=== PATIENT | female | born 1950 | race Caucasian/White ===

== ENCOUNTER 2016-04-25 10:33 | Inpatient (IN) | payer OTHER ==
[~2016-04-25] VITALS: Ht 160 cm; Wt 76.0 kg
[2016-04-25] MEDS ORDERED: ED DILTIAZEM DRIP 125 ML IV ONE (10:59)
[2016-04-25] MEDS ORDERED: ASPIRIN 81 MG CHEW TAB ONE (10:59)
[2016-04-25] MEDS ORDERED: DILTIAZEM 50 MG/10 ML VIAL IV ONE (10:59)
[2016-04-25] MEDS ORDERED: AZITHROMYCIN 500 MG VIAL IV ONE (14:33)
[2016-04-25] MEDS ORDERED: CEFTRIAXONE 1 GM VIAL ONE (14:33)
[2016-04-25] MEDS ORDERED: SODIUM CHLORIDE 0.9% 100 ML IV ONE (14:34)
[2016-04-25] MEDS ORDERED: SODIUM CHLORIDE 0.9% 250 ML IV ONE (14:34)
[2016-04-25 16:22] VITALS: BP_SYST 120; BP_SYST 122; RESP 18; TEMP 97.6; BMI 29.7
[2016-04-25] MEDS ORDERED: PNEUMO VAC 25 MCG/0.5 ML VL IM.VACC ONE (17:35)
[2016-04-25 19:00] VITALS: BP_SYST 122; RESP 18; TEMP 97.9
[2016-04-25] MEDS ORDERED: ONDANSETRON 4 MG VIAL IV PUSH PRN (19:15)
[2016-04-25] MEDS ORDERED: SALINE FLUSH 10 ML FLUSH PRN (19:15)
[2016-04-25 19:23] VITALS: BP_SYST 122
[2016-04-25 19:24] VITALS: TEMP 97.9
[2016-04-25 20:15] VITALS: RESP 20
[2016-04-25] MEDS: SALINE FLUSH 10 ML FLUSH SCH (20:18)
[2016-04-25] MEDS ORDERED: Atorvastatin 10 MG TAB PO SCH (21:00)
[2016-04-25 23:00] VITALS: BP_SYST 111; RESP 18; TEMP 98.8
[2016-04-26 03:00] VITALS: BP_SYST 117; RESP 18; TEMP 99
[2016-04-26] MEDS ORDERED: SODIUM CHLORIDE 0.9% FLUSH BAG 500 ML IV SCH (06:00)
[2016-04-26 07:02] VITALS: BP_SYST 117
[2016-04-26 07:42] VITALS: BP_SYST 118; RESP 16; TEMP 98.9
[2016-04-26] MEDS ORDERED: ASPIRIN EC 81 MG TAB PO SCH (09:00)
[2016-04-26] MEDS ORDERED: CALCIUM PO SCH (09:00)
[2016-04-26] MEDS ORDERED: MULTIVITS/MIN (OCUVITE) TAB PO SCH (09:00)
[2016-04-26] MEDS ORDERED: CEFTRIAXONE 1 GM in SODIUM CHLORIDE 0.9% 50 ML IV SCH (09:00)
[2016-04-26] MEDS ORDERED: KCL CR 20 MEQ TAB PO SCH (09:00)
[2016-04-26] MEDS ORDERED: BUPROPION XL 150 MG TAB PO SCH (09:00)
[2016-04-26] MEDS ORDERED: FOLIC ACID 1 MG TAB PO SCH (09:00)
[2016-04-26] MEDS ORDERED: VIT D PO SCH (09:00)
[2016-04-26] MEDS ORDERED: LISINOPRIL/HCTZ 10/12.5 TAB PO SCH (09:00)
[2016-04-26] MEDS ORDERED: AZITHROMYCIN 500 MG in SODIUM CHLORIDE 0.9% 250 ML IV SCH (09:00)
[2016-04-26] MEDS: SALINE FLUSH 10 ML FLUSH SCH (09:56)
[2016-04-26 11:54] VITALS: BP_SYST 141; RESP 18; TEMP 98.4
[2016-04-26 14:18] VITALS: BP_SYST 141; RESP 18; TEMP 98.4
[2016-04-27] MEDS ORDERED: HYDROXYCHLOROQUINE 200 MG PO SCH (09:00)
== END 2016-04-26 17:41 | disposition home or self-care (01) | DRG 193 ==
LOC: ENRESERVTM → ENRESERVDT → ER 10:33 → EMR 14:20 → ENPENDDIS 14:20 → 4THE 16:13
PROVIDERS: ADMIT Family Medicine; ATTEND Family Medicine
PROC: 0W9B3ZZ Drainage of Left Pleural Cavity, Percutaneous Approach (ICD-10-PCS; principal; 2016-04-25)
CPT/HCPCS: 32555; 71010; 71250; 76604; 88108; 90732; 93005; 94799; 96361; 96365; 96366; 96367; 96375; 99217; 99222; 99223; 99233